=== PATIENT | male | born 1970 ===

== ENCOUNTER 2019-01-18 13:55 | Emergency (ER) | payer MEDICAID, MEDICARE ==
[~2019-01-18] VITALS: Ht 177.8 cm; Wt 68.0 kg
--- NOTE | 2019-01-18 14:07 | NUR ---
"[id number], HOMELESS, SUICIDAL PLAN TO OD ON MEDS, ADMITS ON METH x 2 DAYS" PT AAOX4, -SOB, NAD NOTED, PT ON MONITOR, VSS, PENDING MD CARDENAS
--- NOTE | 2019-01-18 14:20 | NUR ---
PT WANDED BY SECURITY. BELONGINGS PLACED ON SAFE LOCKER.
[2019-01-18] MEDS ORDERED: OLANZAPINE 5 MG TABLET PO ONE (14:30)
[2019-01-18] MEDS ORDERED: IV NS 0.9% 1,000 ML BAG IV ONE (14:30)
[2019-01-18] MEDS ORDERED: LORAZEPAM 1 MG TABLET PO ONE (14:30)
[2019-01-18] MEDS ORDERED: OLANZAPINE 5 MG TABLET ONE (14:32)
[2019-01-18] MEDS ORDERED: LORAZEPAM 1 MG TABLET ONE (14:33)
[2019-01-18 14:34] LABS: BASOPHILS # (AUTO) 0.1 /CMM (0.0-0.2); BASOPHILS % (AUTO) 0.9 % (0.0-2.0); EOSINOPHILS % (AUTO) 2.1 % (0.0-6.0); HEMATOCRIT 49 % (39-51); HEMOGLOBIN 16.4 g/dL (13.5-17.5); LYMPHOCYTES # (AUTO) 1.8 /CMM (0.8-4.8); LYMPHOCYTES % (AUTO) 16.6 % (20.0-44.0); MEAN CORPUSCULAR HGB CONC 34 g/dl (31.0-36.0); MEAN CORPUSCULAR VOLUME 92 fL (80-96); MONOCYTES # (AUTO) 1.1 /CMM (0.1-1.30); MONOCYTES % (AUTO) 9.8 % (2.0-12.0); NEUTROPHILS # (AUTO) 7.7 /CMM (1.8-8.9); NEUTROPHILS % (AUTO) 70.6 % (43.0-81.0); PLATELET COUNT (AUTO) 259 /CMM (150-450); RED BLOOD CELL COUNT(AUTO) 5.26 MIL/uL (4.5-6.0); WHITE BLOOD COUNT (AUTO) 10.9 K/uL (4.3-11.0)
[2019-01-18 14:49] LABS: ALBUMIN 4.5 g/dL (3.4-5.0); BILIRUBIN,DIRECT 0.1 mg/dL (0.0-0.2); BILIRUBIN,TOTAL 0.9 mg/dL (0.2-1.0); CREATININE 0.8 mg/dL (0.6-1.3); SALICYLATE 4.2 mg/dL (2.8-20.0); TOTAL PROTEIN, SERUM 8.1 g/dL (6.4-8.2)
--- NOTE | 2019-01-18 16:39 | NUR ---
URINE SENT TO LAB
[2019-01-18 16:55] LABS: APPEARANCE,URINE Slightly Cloudy (CLEAR); BILIRUBIN,URINE Negative (NEGATIVE); BLOOD, URINE Negative Ery/uL (NEGATIVE); COLOR,URINE Dark (YELLOW); KETONES,URINE Trace (NEGATIVE); LEUKOCYTE ESTERASE ,URINE Negative (NEGATIVE); NITRITE, URINE Negative (NEGATIVE); PROTEIN,URINE 30 mg/dl (NEGATIVE); UGLUCOSE Negative (NEGATIVE); UROBILINOGEN,URINE 0.2 EU/dL (0.2)
--- NOTE | 2019-01-18 17:07 | NUR ---
CALLED [facility] [phone] [facility].
[2019-01-18 17:36] LABS: BACTERIA,URINE Few /HPF (None Seen)
[2019-01-18 17:37] LABS: SQUAMOUS EPITHELIAL CELL,UR Rare /HPF (None Seen)
--- NOTE | 2019-01-18 20:07 | NUR ---
FAX CLINICALS; POSSIBLE BED AT OR
--- NOTE | 2019-01-18 20:40 | NUR ---
SPOKE WITH [facility] FOR EVALUATION. PER [facility], "PT CANNOT BE PLACED ON HOLD BY REQUEST", WILL ATTEMPT TO FIND BED FOR PT ON VOLUNTARY BASIS
--- NOTE | 2019-01-18 20:52 | NUR ---
CLINICAL INFORMATION FAXED TO [facility]
--- NOTE | 2019-01-18 22:55 | NUR ---
PT ACCEPTED TO [facility] ACCEPTING MD: DR. PETERSON CALLED [facility] FOR TRANSPORTATION. ETA [phone]. TRIP NUMBER [id number] Addendum: 01/18/19 at 2310 by JAYCE BED [id number]
--- NOTE | 2019-01-18 23:00 | NUR ---
GAVE REPORT TO GAIL VILLEDA FROM [facility]
[2019-01-19 00:03] VITALS: BP 103/69
--- NOTE | 2019-01-19 00:03 | NUR ---
PT LEFT FOR [facility], PT LEFT IN STABLE CONDITION, LEFT VIA PRIVATE AMBULANCE, VSS, NAD NOTED, ALL BELONGINGS WITH PATIENT, LEFT VIA GURNEY, REPORT GIVEN TO AMBULANCE STAFF
== END 2019-01-19 00:04 ==
LOC: ER 14:01
DX: F29 Unspecified psychosis not due to a substance or known physiological condition (principal); F19.10 Other psychoactive substance abuse, uncomplicated; I10 Essential (primary) hypertension; F25.9 Schizoaffective disorder, unspecified; F17.200 Nicotine dependence, unspecified, uncomplicated; R00.0 Tachycardia, unspecified; F12.10 Cannabis abuse, uncomplicated; F15.10 Other stimulant abuse, uncomplicated
CPT/HCPCS: 36415; 80048; 80076; 80305; 80307; 80329; 81001; 85025; 87086; 99285; G0480; J7030 ×2; 81000-TC